=== PATIENT | male | born 1985 | race Caucasian/White ===

== ENCOUNTER 2017-04-12 14:09 | Emergency (ER) | payer OTHER ==
[~2017-04-12] VITALS: Ht 190.5 cm; Wt 113.8 kg
[~2017-04-12 14:09] MED LIST: NOHOMEMEDS
[2017-04-12] MEDS ORDERED: FLOXIN OTIC SOLN5 ML RIGHT EAR (15:31)
[2017-04-12] MEDS ORDERED: AUGMENTIN875 MG PO (15:36)
[2017-04-12 16:19] VITALS: BP 150/87
== END 2017-04-12 16:24 | disposition home or self-care (01) ==
LOC: EME 14:09
DX: H60.91 Unspecified otitis externa, right ear (principal); H66.91 Otitis media, unspecified, right ear; Z86.14 Personal history of Methicillin resistant Staphylococcus aureus infection; Z88.1 Allergy status to other antibiotic agents
CPT/HCPCS: 99281; 99283